=== PATIENT | female | born 1945 | race Caucasian/White ===

== ENCOUNTER 2018-09-28 13:00 | Outpatient (RCR) | payer MEDICARE, SELFPAY | END 2018-09-28 13:10 | disposition home or self-care (01) | LOC: PT 13:00 | PROVIDERS: Visit Provider Orthopaedic Surgery | DX: M16.11 Unilateral primary osteoarthritis, right hip (principal); Z74.09 Other reduced mobility; Z96.641 Presence of right artificial hip joint | CPT/HCPCS: 97010; 97110; 97112; 97116; 97140; 97163 ==

== ENCOUNTER 2021-01-14 08:00 | Outpatient (RCR) | payer MEDICARE, SELFPAY | END 2021-02-14 08:05 | disposition home or self-care (01) | LOC: OT 08:00 | PROVIDERS: Visit Provider Orthopaedic Surgery Sports Medicine | DX: M75.121 Complete rotator cuff tear or rupture of right shoulder, not specified as traumatic (principal) | CPT/HCPCS: 97014; 97110; 97140; 97164; 97166; 97530; G0283 ==